=== PATIENT | female | born 2005 | race Caucasian/White ===

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

== ENCOUNTER 2024-04-13 20:22 | Emergency (ER) | payer OTHER ==
--- NOTE | 2024-04-13 20:26 | ERPHSYRPT ---
- History of Present Illness Time Seen by Provider: 04/13/24 20:26 Source: patient, family Exam Limitations: no limitations Physician History: This is a 19-year-old white female patient of Dr. Branham who was brought into the emergency department by her family because of a wasp sting to the right elbow. It occurred approximately 815. The skin over lying the right elbow became red and swollen burning and itchy. She denies chest pain and she denies shortness of breath. Patient does have a history of asthma and gastroesophageal reflux disease. Timing/Duration: today Quality: burning, itchy Severity: mild Location: extremities (Right elbow) Possible Causes: insect sting Modifying Factors: Improves With: other (Patient did not try any medication prior to arrival) Associated Symptoms: denies symptoms Allergies/Adverse Reactions: No Known Drug Allergies Allergy (Verified 04/13/24 20:39) Home Medications: Melatonin 5 mg PO HS 08/02/21 [History] Hx Tetanus, Diphtheria Vaccination/Date Given: Yes Hx Influenza Vaccination/Date Given: Yes Hx Pneumococcal Vaccination/Date Given: No Travel Risk - International Travel Have you traveled outside of the country in past 3 weeks: No - Emerging Infectious Disease Are you exhibiting symptoms associated with any current EIDs: No - Review of Systems Constitutional: No Symptoms Eyes: No Symptoms Ears, Nose, & Throat: No Symptoms Respiratory: No Symptoms Cardiac: No Symptoms Abdominal/Gastrointestinal: No Symptoms Genitourinary Symptoms: No Symptoms Musculoskeletal: No Symptoms Skin: Other (Redness swelling burning pain itchiness skin overlying right elbow) Neurological: No Symptoms Psychological: No Symptoms Endocrine: No Symptoms Hematologic/Lymphatic: No Symptoms Immunological/Allergic: No Symptoms All Other Systems: Reviewed and Negative - Past Medical History Pertinent Past Medical History: Yes Neurological History: No Pertinent History ENT History: No Pertinent History Cardiac History: No Pertinent History Respiratory History: Asthma Endocrine Medical History: No Pertinent History Musculoskeletal History: No Pertinent History GI Medical History: GERD History: No Pertinent History Psycho-Social History: Anxiety, Attention Deficit Disorder, Depression Female Reproductive Disorders: No Pertinent History Other Medical History: NO HISTORY OF NECK PAIN - Past Surgical History Past Surgical History: No Neuro Surgical History: No Pertinent History Cardiac: No Pertinent History Respiratory: No Pertinent History Gastrointestinal: No Pertinent History Genitourinary: No Pertinent History Musculoskeletal: No Pertinent History Female Surgical History: No Pertinent History - Social History Smoking Status: Never smoker Exposure to second hand smoke: No Drug Use: none Patient Lives Alone: No - Nursing Vital Signs Nursing Vital Signs: Initial Vital Signs Temperature 97.7 F 04/13/24 20:28 Pulse Rate 75 04/13/24 20:28 Respiratory Rate 18 04/13/24 20:28 Blood Pressure 121/75 04/13/24 20:28 O2 Sat by Pulse Oximetry 100 04/13/24 20:28 Pain Scale Pain Intensity 9 - Physical Exam General Appearance: no apparent distress, alert, anxiety, thin Eye Exam: PERRL/EOMI, eyes nml inspection Ears, Nose, Throat Exam: normal ENT inspection, moist mucous membranes Neck Exam: normal inspection, non-tender, supple, full range of motion Respiratory Exam: normal breath sounds, lungs clear, airway intact, No chest tenderness, No respiratory distress Cardiovascular Exam: regular rate/rhythm, normal heart sounds, normal peripheral pulses Gastrointestinal/Abdomen Exam: soft, normal bowel sounds, No tenderness Pelvic Exam: not done Rectal Exam: not done Back Exam: normal inspection, normal range of motion, No CVA tenderness, No vertebral tenderness Extremity Exam: normal range of motion, pelvis stable, inflammation (Skin overlying right elbow), swelling (Skin overlying right elbow), tenderness (Burning sensation of skin overlying right elbow) Neurologic Exam: alert, oriented x 3, cooperative, claim professional II-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 nml as tested, nml cerebellar function, nml station & gait, sensation nml Skin Exam: other (Above description) Lymphatic Exam: No adenopathy SpO2 Interpretation: normal O2 Delivery: Room Air - Course Nursing assessment & vital signs reviewed: Yes Ordered Tests: Medication Summary Discontinued Medications Generic Name Dose Route Start Last Admin Trade Name Rupali PRN Reason Stop Dose Admin Diphenhydramine HCl 50 mg 04/13/24 20:44 04/13/24 20:49 Diphenhydramine Hcl 25 Mg Capsule PO 04/13/24 20:45 50 mg STAT ONE Administration Diphenhydramine HCl Confirm 04/13/24 20:47 Diphenhydramine Hcl 25 Mg Capsule Administered 04/13/24 20:48 Dose 50 mg .ROUTE .STK-MED ONE Famotidine 40 mg 04/13/24 20:44 04/13/24 20:49 Famotidine 20 Mg Tablet PO 04/13/24 20:45 40 mg STAT ONE Administration Famotidine Confirm 04/13/24 20:47 Famotidine 20 Mg Tablet Administered 04/13/24 20:48 Dose 40 mg .ROUTE .STK-MED ONE Prednisone 20 mg 04/13/24 20:45 04/13/24 20:49 Prednisone 20 Mg Tablet PO 04/13/24 20:46 20 mg STAT ONE Administration Prednisone Confirm 04/13/24 20:47 Prednisone 20 Mg Tablet Administered 04/13/24 20:48 Dose 20 mg .ROUTE .STK-MED ONE - Progress Progress: unchanged Progress Note: 04/13/24 20:55 My medical decision making and the assignment of low complexity to this patient's medical issue today is based on review of the patient's past medical history, review the patient's medication list, review the patient drug allergy list, history present illness and physical findings on examination. This patient's workup does not require laboratory or radiographic studies. Counseled pt/family regarding: diagnosis, need for follow-up Medical Desision Making - Independent Historian Additional History obtained from: Family - Diagnostic Testing Diagnostic test were ordered, analyzed, and reviewed by me: No - Risk of complications The pt has a mod risk of morbidity or mortality based on: Need for prescription drug management - Departure Departure Disposition: Home Clinical Impression: Wasp sting, Allergic reaction Condition: Stable Critical Care Time: No Referrals: JOHANNA BRANHAM [Primary Care Provider] - Follow up/PCP as directed Additional Instructions: Keep the area of sting clean daily with soap and water. May use ice pack 3 times a day for the next 48 hours to help with inflammation and tenderness. May add Tylenol for pain control. Use Benadryl 25 mg orally 3 times a day for the next 4 days. Take your other prescribed medicines as prescribed. Return to the emergency department if your symptoms suddenly worsen. Prescriptions: Prednisone 10 mg [Deltasone 10 mg] 10 mg PO TID #12 tablet Famotidine 20 mg [Pepcid 20 MG] 20 mg PO DAILY #5 tablet
[2024-04-13 20:39] VITALS: TEMP 97.7
[2024-04-13] MEDS ORDERED: BENADRYL 25 MG CAPSULE ONE (20:47)
[2024-04-13] MEDS ORDERED: DELTASONE 20 MG ONE (20:47)
[2024-04-13] MEDS ORDERED: Pepcid 20 MG ONE (20:47)
[2024-04-13] MEDS: BENADRYL 25 MG CAPSULE PO ONE (20:49)
[2024-04-13] MEDS: DELTASONE 20 MG PO ONE (20:49)
[2024-04-13] MEDS: Pepcid 20 MG PO ONE (20:49)
[2024-04-13 21:05] VITALS: BP 110/69; PULSE 64; RESP 16; O2SAT 99
== END 2024-04-13 21:05 | disposition home or self-care (01) ==
LOC: ED 20:22
DX: T63.463A Toxic effect of venom of wasps, assault, initial encounter (principal)
CPT/HCPCS: 99282; A9270-GY

== ENCOUNTER 2024-07-16 17:52 | Emergency (ER) | payer OTHER ==
[2024-07-16 18:28] VITALS: TEMP 100.9; O2SAT 97
--- NOTE | 2024-07-16 18:37 | ERPHSYRPT ---
- History of Present Illness Time Seen by Provider: 07/16/24 17:53 Source: patient, family Exam Limitations: no limitations Patient Subjective Stated Complaint: C/O cough, fever, body aches, headache that started yesterday evening Triage Nursing Assessment: Patient ambulated back to ER without difficulties. She is alert and oriented. Patient has a weak, dry, non-productive cough. Lungs clear. No SOB. Skin is hot to touch. Physician History: 19-year-old with history of anxiety/depression/asthma is brought in the ER with cough congestion body aches since yesterday. Patient reports nonproductive cough with no chest pain or difficulty breathing. Denies any known sick contact. Does have sore throat without any difficulty swallowing. Subjective feeling of fever and chills. Allergies/Adverse Reactions: bee venom protein (honey bee) Allergy (Verified 07/16/24 18:16) Home Medications: Albuterol Sulfate [Albuterol Sulfate Hfa] 2 puff PO Q4-6HPRN PRN 07/16/24 [History] Famotidine 20 mg PO BID 07/16/24 [History] Sertraline HCl 5 ml PO DAILY 07/16/24 [History] Hx Tetanus, Diphtheria Vaccination/Date Given: Yes Hx Influenza Vaccination/Date Given: Yes Hx Pneumococcal Vaccination/Date Given: No Immunizations Up to Date: Yes Travel Risk - International Travel Have you traveled outside of the country in past 3 weeks: No - Emerging Infectious Disease Are you exhibiting symptoms associated with any current EIDs: Yes Symptoms: Cough: New Onset, Fever, Headaches/Body Aches/ - Review of Systems Constitutional: Fever, Chills Eyes: No Symptoms Ears, Nose, & Throat: Nose Congestion, Throat Pain, Throat Swelling Respiratory: Cough Cardiac: No Symptoms Abdominal/Gastrointestinal: No Symptoms Genitourinary Symptoms: No Symptoms Musculoskeletal: Myalgias Skin: No Symptoms Neurological: Headache Psychological: No Symptoms Endocrine: No Symptoms Hematologic/Lymphatic: No Symptoms - Past Medical History Pertinent Past Medical History: Yes Neurological History: No Pertinent History ENT History: No Pertinent History Cardiac History: No Pertinent History Respiratory History: Asthma Endocrine Medical History: No Pertinent History Musculoskeletal History: No Pertinent History GI Medical History: GERD History: No Pertinent History Psycho-Social History: Anxiety, Attention Deficit Disorder, Depression Female Reproductive Disorders: No Pertinent History Other Medical History: PMH: ASTHMA, HAS INHALER. PSH: NONE - Past Surgical History Past Surgical History: No Neuro Surgical History: No Pertinent History Cardiac: No Pertinent History Respiratory: No Pertinent History Gastrointestinal: No Pertinent History Genitourinary: No Pertinent History Musculoskeletal: No Pertinent History Female Surgical History: No Pertinent History - Female History Hx Last Menstrual Period: 02/2024 Hx Now: No - Social History Smoking Status: Never smoker Exposure to second hand smoke: No Drug Use: none Patient Lives Alone: No - Social Determinants of Health Will the patient participate in the screening: Declined to provide - Nursing Vital Signs Nursing Vital Signs: Initial Vital Signs Temperature 100.9 F 07/16/24 18:15 Pulse Rate 104 H 07/16/24 18:15 Respiratory Rate 20 07/16/24 18:15 Blood Pressure 112/70 07/16/24 18:15 O2 Sat by Pulse Oximetry 97 07/16/24 18:15 Pain Scale Pain Intensity 5 - Physical Exam General Appearance: no apparent distress, alert Eye Exam: PERRL/EOMI Ears, Nose, Throat Exam: moist mucous membranes, pharyngeal erythema Neck Exam: normal inspection, non-tender, supple, full range of motion Respiratory Exam: normal breath sounds, lungs clear Cardiovascular Exam: regular rate/rhythm, normal heart sounds Gastrointestinal/Abdomen Exam: soft, No tenderness Extremity Exam: normal inspection Neurologic Exam: alert, oriented x 3, cooperative, head golf coach II-XII nml as tested Skin Exam: normal color SpO2 Interpretation: normal SpO2: 97 O2 Delivery: Room Air Ordered Tests: Active Orders 24 hr Category Date Time Status CHEST 1 VIEW (PORTABLE) Stat Exams 07/16/24 18:16 Taken Medication Summary Discontinued Medications Generic Name Dose Route Start Last Admin Trade Name Rupali PRN Reason Stop Dose Admin Acetaminophen 750 mg 07/16/24 18:37 07/16/24 18:44 Acetaminophen 160 Mg/5 Ml Bottle 15 mg/kg (750 mg) 07/16/24 18:38 750 mg PO Administration ONCE STA Acetaminophen Confirm 07/16/24 18:43 Acetaminophen 160 Mg/5 Ml Bottle Administered 07/16/24 18:44 Dose 160 mg .ROUTE .[facility] ONE Lab/Rad Data: Laboratory Results 07/16/24 Range/Units 18:30 Influenza Type A Ag NEGATIVE (NEGATIVE) Influenza Type B Ag NEGATIVE (NEGATIVE) RSV (PCR) NEGATIVE (NEGATIVE) SARS-CoV-2 (PCR) POSITIVE A (NEGATIVE) Group A Strep Antibody NOT DETECTED (NEGATIVE) - Progress Progress: unchanged Air Movement: good Progress Note: 07/16/24 19:31 19-year-old is evaluated in the ER for flulike symptoms. Patient is not in any distress. Lungs fairly clear to auscultation. Chest x-ray negative for any acute cardiopulmonary findings reviewed by me, official report is pending. Has negative flu/strep/RSV but positive for COVID-19. Recommended supportive care to continue with inhaler as needed. Outpatient follow-up recommended. Discussed signs symptoms of worsening needing return to ER which patient/family seem understanding. Stable for discharge. 07/16/24 19:32 Blood Culture(s) Obtained: No Antibiotics given: No Counseled pt/family regarding: lab results, diagnosis, rad results Medical Desision Making - Independent Historian Additional History obtained from: Mother - Diagnostic Testing Diagnostic test were ordered, analyzed, and reviewed by me: Yes Radiological Interpretation: Interpreted by me, Reviewed by me - Departure Departure Disposition: Home Clinical Impression: Viral syndrome, COVID-19 virus detected Condition: Stable Critical Care Time: No Referrals: JOHANNA DAS [Primary Care Provider] - Follow up with PCP 1 day Instructions: Cough, Adult (DC), COVID-19 in adults - Discharge instructions Additional Instructions: Continue with inhaler. Take Tylenol/ibuprofen as needed for symptomatic relief. Follow-up with primary care for reevaluation. Return to ER for persistent high-grade fever, difficulty breathing etc.
[2024-07-16] MEDS ORDERED: TYLENOL SUSPENSION 160 MG/5 ML ONE (18:43)
[2024-07-16] MEDS: TYLENOL SUSPENSION 160 MG/5 ML PO STA (18:44)
[2024-07-16 18:55] VITALS: RESP 18
[2024-07-16 18:58] LABS: Group A Strep NOT DETECTED (NEGATIVE)
[2024-07-16 19:09] LABS: INFLUENZA A NEGATIVE (NEGATIVE); INFLUENZA B NEGATIVE (NEGATIVE); RESPIRATORY SYNCTIAL VIRUS NEGATIVE (NEGATIVE)
[2024-07-16 19:25] LABS: SARS-CoV-2 Xpert Express POSITIVE (NEGATIVE)
[2024-07-16 19:42] VITALS: BP 102/68; PULSE 98
--- NOTE | 2024-07-17 09:27 | XRAY ---
Indication: Cough. Fever. Comparison: August 02, 2021 Portable chest again demonstrates normal heart, lungs, and bony thorax.
== END 2024-07-16 19:47 | disposition home or self-care (01) ==
LOC: ED 17:52
DX: U07.1 COVID-19 (principal); R05.1 Acute cough; M79.10 Myalgia, unspecified site; J02.9 Acute pharyngitis, unspecified; Z79.899 Other long term (current) drug therapy
CPT/HCPCS: 0241U; 71045; 87651; 99285; 99283; A9270-GY